=== PATIENT | female | born 1945 | race Two or more races ===

== ENCOUNTER 2019-07-27 07:17 | Outpatient (CLI) | payer OTHER ==
[~2019-07-27 07:17] MED LIST: AMPICILLIN TRI500 MG PO; CELEBREX100 MG PO; CIPRO500 MG PO; COUMADIN5 MG PO; CRESTOR10 MG PO; HYZAAR 100-121 UDTAB PO; IBUPROFEN800 MG PO; MEFOXIN 1GM M1000 MG; SEPTRA DS TABLE1 TAB PO; TOPROL XL50 MG PO; TRAMADOL HCL50 MG PO
== END 2019-07-27 07:32 | disposition home or self-care (01) ==
LOC: NUCLEAR 07:17
DX: I25.10 Atherosclerotic heart disease of native coronary artery without angina pectoris (principal)
CPT/HCPCS: 78452; 93017; A9500; J0153

== ENCOUNTER 2021-05-13 08:47 | Outpatient (CLI) | payer OTHER | END 2021-05-13 09:00 | disposition home or self-care (01) | LOC: MAMO-SONO 08:47 | PROVIDERS: ATTEND General Practice | DX: N60.29 Fibroadenosis of unspecified breast (principal); N64.4 Mastodynia; Z12.31 Encounter for screening mammogram for malignant neoplasm of breast ==